=== PATIENT | female | born 2000 | race Caucasian/White ===

== ENCOUNTER 2025-03-18 09:31 | Day surgery (SDC) | payer BC ==
[2025-03-13 12:41] VITALS: BMI 23.3
[~2025-03-18 09:31] MED LIST: metroNIDAZOLE-NS PMX 500 MG in SALINE 1 100ML.BAG IVPB PRN
[2025-03-18] MEDS: IV FLUID CONTINUATION 1,000 ML IV ONE (09:48)
[2025-03-18] MEDS: DEXAMETHASONE SOD PHOSPHATE 4 MG/ML 1 ML VIAL IV ONE (10:09)
[2025-03-18] MEDS: ONDANSETRON 4 MG/2 ML VIAL IVP ONE (10:09)
[2025-03-18] MEDS: LACTATED RINGERS 1,000 ML IV SCH (10:09)
[2025-03-18] MEDS ORDERED: PROPOFOL 10 MG/ML 20 ML VIAL IV ONE (10:27)
[2025-03-18] MEDS ORDERED: LIDOCAINE 1% INJ 10MG/ML (20 ML MDV) ONE (10:27)
[2025-03-18] MEDS ORDERED: LIDOCAINE 4% LTA KIT (4 ML) TOPICAL ONE (10:27)
[2025-03-18] MEDS ORDERED: MIDAZOLAM 2 MG/2 ML VIAL ONE (10:27)
[2025-03-18] MEDS ORDERED: fentaNYL (PF) 50 MCG/ML 2 ML AMP ONE (10:27)
[2025-03-18] MEDS ORDERED: SUCCINYLCHOLINE CHLORIDE 200 MG/10 ML VIAL IV ONE (10:27)
[2025-03-18] MEDS: BUPIVACAINE (PF) 0.25% 30 ML VIAL SQ ONE (11:00)
[2025-03-18 11:26] VITALS: TEMP 97.6
--- NOTE | 2025-03-18 11:34 | P.OP ---
Date of Procedure: 03/18/25 Preoperative Diagnosis: Pilonidal cyst Postoperative Diagnosis: Pilonidal cyst measuring 3 x 2 cm Procedure(s) Performed: Excision pilonidal cyst, simple Anesthesia: JAMEELA Surgeon: Karine Kimball Pathology: other (Pilonidal cyst) Condition: stable Disposition: same day Indications for Procedure: 25-year-old female presents today secondary to pilonidal cyst. She did have an infection of this with drainage of purulent material. She was on antibiotic therapy with resolution of her symptoms. Plan is for cyst excision today. Risks, benefits and alternatives were provided to the patient. All questions answered prior to returning the operating suite. Operative Findings: 3 x 2 cm pilonidal cyst Description of Procedure: Patient was brought to the operative suite placed in supine position. She did undergo endotracheal intubation after general anesthetic was administered and placed in prone position. She was then prepped and draped in regular sterile fashion. Methylene blue was inserted through the sinus tract at the pilonidal cyst site. Curved elliptical incision was made over the pilonidal cyst and dissection was carried towards the presacral fascia. Care was taken to dissect all the tissue that was dyed blue. Hemostasis was maintained with cautery. Irrigation was placed within wound. Pilonidal cyst measured 3 x 2 cm. Half- inch iodoform packing gauze was placed. Sterile dressing was applied. The patient was awakened in the operative suite and taken to postanesthesia care unit in stable condition.
[2025-03-18] MEDS: HYDROmorphone 0.5 MG/0.5 ML SYRINGE IVP PRN (11:52)
[2025-03-18] MEDS: HYDROcodone/APAP 5-325MG 1 EACH TAB PO STA (13:02)
[2025-03-18 13:07] VITALS: RESP 16
[2025-03-18 13:08] VITALS: BP 109/70
[2025-03-18 13:12] VITALS: PULSE 78
== END 2025-03-18 13:15 | disposition home or self-care (01) ==
LOC: OR 09:31
PROVIDERS: ATTEND Surgery
DX: L05.01 Pilonidal cyst with abscess (principal); L92.8 Other granulomatous disorders of the skin and subcutaneous tissue; R56.9 Unspecified convulsions; F41.9 Anxiety disorder, unspecified; Z79.899 Other long term (current) drug therapy
CPT/HCPCS: 11770; 81025; 88304; J2250; J0330; J1100; J0690; J2405; J2003; J3010; J2704; J1171; J0665